=== PATIENT | male | born 1955 | race Caucasian/White ===

== ENCOUNTER 2022-10-21 10:17 | Outpatient (CLI) | payer OTHER ==
[2022-10-21 16:58] VITALS: BP 136/88
--- NOTE | 2022-10-21 16:58 | SLEEP CARE CONSULTATION ---
Information from patient questionnaire entered by Dustin Pichardo. I have reviewed and concur with the information entered by Dustin Pichardo. This document represents the service I personally performed and the decisions made by me, Ronni Acosta MD, [facility]. History of Present Illness Service Date and Time: 10/21/2022 1017 Reason for Visit: New patient Chief Complaint: reports: Insomnia, Unrefreshed sleep, Excessive daytime sleepiness, Fatigue Date of Onset: 6-7YRS Usual bedtime: 12AM Time it takes to fall asleep: 30-60MIN Snores at night: No Observed to quit breathing while asleep: No Sleeps alone due to snoring: No Number of times waking at night: 2-3 Reasons for waking at night: reports: Pain, Bathroom Toss, Turn, or Twitch while sleeping: Yes Recalls having dreams: Yes Usually gets out of bed at: 7AM Feels refreshed in the morning: No Morning headache: No Sleepy or fatigued during the day: Yes Ever fallen asleep while driving: No Takes day naps: No Dreams during day naps: No Prior sleep studies: Yes Additional HPI information: I had the pleasure of seeing Mr. Thompson today regarding obstructive sleep apnea- hypopnea. As you know, he is a 67-year-old gentleman who was diagnosed with the sleep-disordered breathing at [facility] in [place] about 4 5 years ago. The sleep study report is not available but the patient recalls being told that it was severe. He was prescribed a CPAP which he acquired from the [facility]. He tried it for one month then quit because of claustrophobia. He tried nasal pillows, nasal masks, and full face masks. Since the diagnosis, he gained 50 lbs. Interestingly, his snore has gotten much better and his no longer sees him quit breathing at night. He adds that he is not sleepy during the day. He did look into the Inspire therapy (hypoglossal nerve stimulation) at [facility] but was told that he is not a candidate. - Parasomnia Symptoms Ever been unable to move upon waking from sleep: No Walks in sleep: No Talks in sleep: No Ever acted out dreams in sleep: No Ever felt weak in the knees when startled or emotional: No Bothered by creepy, crawly, restless sensations in legs: Yes Problems with memory or concentration: Yes Subjective Initial [place] Sleepiness Scale score: 9 (10/21/22) Past Medical History Past Medical History: reports: Claustrophobia, Arthritis, Depression, Mood disorder Social History The patient's occupation is a RE. Patient is and lives in [place]. Quit date: 2021 Alcohol use: Yes Alcohol amount and frequency: 1-5 1-2 X YRS Caffeine use: Yes Caffeine amount and frequency: 20OZ DAILY Family History Family history of sleep disordered breathing: No Allergies and Home Medications Known drug allergies: No Drug allergies reviewed: Yes Home medication list reviewed: Yes Allergy and home medication list: Allergies No Known Drug Allergies Allergy (Unverified 11/16/13 11:33) Review of Systems Weight gain over past 5 years: 40 Cardiovascular: denies: high blood pressure, palpitations, chest pain, irregular heart rate or pulse, leg or foot swelling, have to sleep sitting up, other Respiratory: reports: shortness of breath, sputum production, chronic cough Gastrointestinal: reports: heartburn Urinary: denies: incontinence, frequency, urgency, impotence, other Neurological: denies: headaches, seizure, head trauma, disorientation, speech dysfunction, gait or balance problems, fainting or unconsciousness, other Psychiatric: reports: depression, mood disorder Ear/Nose/Throat: reports: wisdom teeth removed Endocrine: denies: thyroid disease, history of goiter, sluggishness, too hot or cold, excessive thirst, increased appetite, increased urination, unexplained weakness, other Musculoskeletal: reports: joint pain, neck pain, back pain, muscle pain or cramping Immunologic: reports: sneezing Physical Exam Vital signs obtained and entered by: DUSTIN Jones MA Blood Pressure: 136/88 (LEFT ARM) Cuff size: regular Heart Rate: 101 O2 Saturation: 93 Height: 5 ft 11 in Weight: 197 lb 3.2 oz Body Mass Index: 27.5 BMI Classification: Overweight Neck circumference: 16.5 Mood/affect: Normal HEENT: No craniofacial malformation Nostrils: patent to airflow Turbinates: normal Septum: midline Mouth and throat: narrow oropharynx Soft palate: long Hard palate: normal Uvula: normal Uvula visualization: 50% Mallampati Class II Tongue: normal in size Tonsils: small Chin and jaw: normal size and position Neck: normal w/o lymphadenopathy or thyromegaly Heart: regular rate and rhythm Lungs: wheeze, crackles Extremities: 1+ edema Neurologic: intact Impression and Plan IMPRESSION: 1. Obstructive Sleep Apnea-Hypopnea Syndrome, as previously diagnosed. The severity is unknown. The patient tried but could not use the CPAP. It is not clear why he is not a candidate for the Inspire therapy (I suspect that it is because his insurance is the [place]). Because he does not snore much at home and his does not see him quit breathing anymore despite the weight gain, I will repeat the in-laboratory polysomnography. The study will also help to qualify him for the Inspire Therapy. With history of multiple pneumothoraxes, positive airway pressure therapy might not be a good treatment. Plan: 1. Schedule an in-laboratory polysomnography. 2. Try to lose weight. 4. Return for follow up after the sleep study. Counseling Topics: Weight control Follow up with Sleep Care in: 1-2 months Plan: in-lab PSG Visit Type: In Office Time Spent with Patient (minutes): 15 Provider Statement: I spent 100% of the Face to Face Visit with the patient with greater than 50% spent counseling the patient and coordination of care.
== END 2022-10-21 10:18 | disposition home or self-care (01) ==
LOC: SC 10:17
PROVIDERS: ATTEND Internal Medicine Pulmonary Disease
DX: G47.33 Obstructive sleep apnea (adult) (pediatric) (principal); E66.3 Overweight; Z68.27 Body mass index [BMI] 27.0-27.9, adult
CPT/HCPCS: 99202; 99212

== ENCOUNTER 2022-11-10 20:22 | Outpatient (CLI) | payer OTHER | END 2022-11-10 20:23 | disposition home or self-care (01) | LOC: SC 20:22 | PROVIDERS: ATTEND Internal Medicine Pulmonary Disease | DX: R09.02 Hypoxemia (principal) | CPT/HCPCS: 95810 ==

== ENCOUNTER 2022-11-14 16:16 | Outpatient (CLI) | payer OTHER ==
[2022-11-14] MEDS ORDERED: ALBUTEROL 1 PUFF INH STA (17:56)
== END 2022-11-14 16:17 | disposition home or self-care (01) ==
LOC: RT 16:16
PROVIDERS: ATTEND Internal Medicine
DX: J84.10 Pulmonary fibrosis, unspecified (principal); R06.00 Dyspnea, unspecified
CPT/HCPCS: 94060; 94727; 94729

== ENCOUNTER 2022-12-04 12:53 | Outpatient (CLI) | payer OTHER ==
[2022-12-04 13:17] VITALS: BP 128/72
--- NOTE | 2022-12-04 13:17 | SLEEP CARE CONSULTATION ---
Information from patient questionnaire entered by Marisol Pichardo. I have reviewed and concur with the information entered by Marisol Pichardo. This document represents the service I personally performed and the decisions made by , Liz Barrios ARNP. History of Present Illness Service Date and Time: 12/04/2022 1253 Initial [place] Sleepiness Scale score: 9 Current [place] Sleepiness Scale score: 7 (12/04/22) Additional HPI information: ANASTASIIA ADLER returns for follow up and results of the recently performed polysomnography. The patient was informed of the following findings: No significant sleep disordered breathing with an average AHI of 4.2 and jamir oxygen saturation of 81% with 15.5 minutes spent below 88% (88.5% was low average SPO2). I explained the pathophysiology behind obstructive sleep apnea. Patient does not have sleep apnea and was advised how weight gain could increase the risk of developing sleep apnea in the future. I strongly encouraged the patient to lose weight. Patient does not have significant sleep disordered breathing but has elevated AHI in supine position so advised positional therapy. Methods to achieve positional management therapy were discussed; such as, positioning with pillows, wearing a T-shirt with tennis balls sewn into the back, or commercially available products. Patient has light snoring. Snoring can be reduced by weight loss. Weight loss is best achieved with diet consult. Patient instructed to contact PCP for referral. Snoring can also be treated with an oral appliance from a dentist. Advised to check insurance coverage. In addition, an ENT evaluation can be do to see if other treatment is indicated. Patient drink alcohol rarely. Patient was cautioned about risks of drowsy driving until sleepiness symptoms resolve. Patient denies drowsy driving. Sleep Study - Results Type of Sleep Study: Polysomnography (COMPLETED 11/10/22) Prior sleep studies: Yes Polysomnography/Home Sleep Study results: IMPRESSION: The quality of the study is good. The patient had slightly reduced sleep efficiency due to frequent awakenings during the night. The sleep architecture was abnormal for sleep fragmentation and lack of slow wave sleep (N3). Respiratory monitoring showed no significant sleep disordered breathing (AHI = 4.2). There was mild hypoxia (jamir oxygen saturation of 81% with 15.5 minutes spent with oxygen saturation at or below 88%). The few respiratory events occurred almost exclusively during supine sleep (supine AHI = 27.0; non-supine = 1.41). Snore was infrequent and light in intensity. There was no significant periodic leg movement of sleep. Cardiac rhythm was normal sinus rhythm without significant arrhythmia. No abnormal behavior (parasomnia) observed during the night. Allergies and Home Medications Known drug allergies: No Drug allergies reviewed: Yes Home medication list reviewed: Yes (Duloxetine 40 mg; Pregabalin) Allergy and home medication list: Allergies No Known Drug Allergies Allergy (Verified 12/03/22 14:43) Review of Systems Review of systems same as previous: Yes (no changes) Physical Exam Vital signs obtained and entered by: MARISOL Jones MA Blood Pressure: 128/72 (LEFT ARM) Cuff size: regular Heart Rate: 104 O2 Saturation: 89 Height: 5 ft 11 in Weight: 199 lb 6.4 oz Body Mass Index: 27.8 BMI Classification: Overweight Impression and Plan 1. Hypoxemia, mild, with a jamir oxygen saturation of 81% and 15.5 minutes spent under 88%. His baseline oxygen saturation was a low normal with an average oxygen saturation of 88.5%. Patient has a history of interstitial lung disease and is under a charge coordinator's care at this time. I advised him to continue followups with pulmonology. 2. Snoring but no significant sleep disordered breathing. However, he had elevated supine AHI at 27. He was advised to avoid supine sleep to control apneas. Patient advised that often weight loss will reduce snoring as well as apnea risk. An oral appliance can also be used for snoring. This would require a dental consultation. Patient cautioned not to use other online appliances as can cause bite issues. A list of accredited dentists in [facility] and one local dentist who makes oral appliances is available in office if needed. Patient is advised to check if insurance will cover. An ENT consult can also be helpful to determine if any other treatment is an option. * Follow up with pulmonolgy as already determined * Attempt to lose weight * Avoid alcohol consumption near bedtime * Return as needed for follow up. Counseling Topics: Sleeping position, Weight loss health impact Visit Type: In Office Time Spent with Patient (minutes): 20 Provider Statement: I spent 100% of the Face to Face Visit with the patient with greater than 50% spent counseling the patient and coordination of care.
== END 2022-12-04 12:54 | disposition home or self-care (01) ==
LOC: SC 12:53
PROVIDERS: ATTEND Nurse Practitioner Family
DX: R09.02 Hypoxemia (principal); R06.83 Snoring; E66.3 Overweight; Z68.27 Body mass index [BMI] 27.0-27.9, adult
CPT/HCPCS: 99212; 99213

== ENCOUNTER 2023-10-23 07:07 | Outpatient (CLI) | payer OTHER | END 2023-10-23 23:59 | disposition critical access hospital (66) | LOC: EMS 07:07 | DX: R55 Syncope and collapse (principal); S09.90XA Unspecified injury of head, initial encounter; W08.XXXA Fall from other furniture, initial encounter | CPT/HCPCS: A0425; A0429 ==

== ENCOUNTER 2023-10-23 07:28 | Emergency (ER) | payer OTHER ==
[2023-10-23 07:48] LABS: BASOPHILS % (AUTO) 0.4 %; EOSINOPHILS # (AUTO) 0.2 10^3/uL (0.0-0.7); EOSINOPHILS % (AUTO) 2.1 %; HCT - HEMATOCRIT 43.4 % (42.0-52.0); LYMPHOCYTES # (AUTO) 0.9 10^3/uL (1.5-3.5); LYMPHOCYTES % (AUTO) 10.1 %; MEAN CORPUSCULAR HEMOGLOBIN 30.2 pg (27.0-31.0); MEAN CORPUSCULAR HGB CONC 32.3 g/dL (32.0-36.0); MEAN CORPUSCULAR VOLUME 93.7 fL (80.0-94.0); MEAN PLATELET VOLUME 8.5 fL (7.4-11.4); MONOCYTES # (AUTO) 0.9 10^3/uL (0.0-1.0); MONOCYTES % (AUTO) 11.1 %; NEUTROPHILS # (AUTO) 6.4 10^3/uL (1.5-6.6); NEUTROPHILS % (AUTO) 76.1 %; PLT - PLATELET COUNT 347 10^3/uL (130-450); RED BLOOD COUNT 4.63 10^6/uL (4.70-6.10); RED CELL DISTRIBUTION WIDTH 12.9 % (12.0-15.0); WHITE BLOOD COUNT 8.5 x10^3/uL (4.8-10.8)
[2023-10-23] MEDS: lidocaine 1% 20 ML MDV SUBQ ONE (07:48)
[2023-10-23] MEDS: SODIUM CHLORIDE 0.9% 1,000 ML IV STA (07:49)
[2023-10-23 08:03] LABS: ALBUMIN 3.9 g/dL (3.2-5.5); ALBUMIN/GLOBULIN RATIO 1.1 (1.0-2.2); BILIRUBIN,TOTAL 0.4 mg/dL (0.2-1.0); CALCIUM 9.5 mg/dL (8.5-10.3); CREATININE 0.9 mg/dL (0.6-1.3); POTASSIUM 4.1 mmol/L (3.5-4.5); TOTAL PROTEIN 7.3 g/dL (6.4-8.9)
--- NOTE | 2023-10-23 08:18 | CT Report ---
PROCEDURE: Cervical Spine WO INDICATIONS: fall/head inj TECHNIQUE: Noncontrast 3 mm thick sections acquired from the skull base to the T4 level. Sagittal and coronal r eformats were then constructed. For radiation dose reduction, the following was used: automated exp osure control, adjustment of mA and/or kV according to patient size. COMPARISON: 11/16/2013. FINDINGS: Image quality: Excellent. Bones: No fractures or dislocations. Visualized superior ribs are intact. Moderately severe cervic al spondylitic change. Remote interbody fusion at C6-C7. Multilevel uncovertebral joint hypertrophy a nd facet arthropathy. Multilevel bony foraminal narrowing. Soft tissues: Prevertebral soft tissues are normal in thickness. No paravertebral hematomas. No ap ical pneumothoraces. Extensive biapical bullous emphysema. Development of a pleural-based spiculated density in the left apex. IMPRESSION: 1. No acute cervical fracture or dislocation. 2. Moderately severe cervical spondylosis. 3. Severe biapical bullous emphysema. 4. Development of a pleural-based spiculated density in the left apex. Recommend CT chest for further evaluation of pulmonary findings. Reviewed by: Cruz Regan MD on 10/23/2023 8:16 AM PDT Approved by: Cruz Regan MD on 10/23/2023 8:16 AM PDT Station ID: [id number]
--- NOTE | 2023-10-23 08:19 | CT Report ---
PROCEDURE: Head WO INDICATIONS: syncope/fall/head inj TECHNIQUE: Noncontrast 4.5 mm thick angled axial sections acquired from the foramen magnum to the vertex. For r adiation dose reduction, the following was used: automated exposure control, adjustment of mA and/or kV according to patient size. COMPARISON: None. FINDINGS: Image quality: Excellent. CSF spaces: Basal cisterns are patent. No extra-axial fluid collections. Ventricles are normal in size and shape. Brain: No midline shift. No intracranial masses or hemorrhage. Nieto-white matter interface is norm al. Skull and face: Calvarium and visualized facial bones are intact, without suspicious lesions. Sinuses: Patchy bilateral ethmoid disease. IMPRESSION: No acute intracranial pathology. Patchy bilateral ethmoid opacification. Reviewed by: Cruz Regan MD on 10/23/2023 8:17 AM PDT Approved by: Cruz Regan MD on 10/23/2023 8:17 AM PDT Station ID: [id number]
--- NOTE | 2023-10-23 09:31 | ED Physician Documentation ---
History of Present Illness - Stated complaint Stated Complaint: FALL/R EYE LAC - Chief complaint Chief Complaint: Trauma Hd/Nk - History obtained from History obtained from: Patient, EMS - Additonal information Additional information: The patient comes to the emergency department with chief complaint of syncopal episode with fall and right Eyelid laceration. The patient states that he normally gets up around 1:00 in the morning and did the same this morning. He had been watching some TV for a while when he began to feel flushed and slightly nauseated. The patient states this was around 4 30-5 o'clock. He got up from the couch where he had been and began to walk to the bathroom just in case he had to vomit. He states that the next thing he knew, he was waking up on the floor. The patient's states that there was a blood splatter on the wall next to where the patient was in a streak going down, which looked like the patient had hit the wall and then slid and down to the floor. The patient was incontinent of urine. He states that when he awoke, the urine still felt warm so he thinks that he was not unconscious for very long. The patient's states that when she woke up and got up for the day at 6:00, the patient was back in his chair and told her what had happened. The patient had blood on his face and the called EMS. The patient states he is feeling completely fine now other than a mild headache and the cut on his face. states that the patient has had a couple of other episodes like this over the years and that 1 time, she thought she noticed some seizure activity while they were in the car. She states it was very brief and that when the patient recovered from unconsciousness, he was seeming like his normal self. This was some years back. The patient has never been formally diagnosed with a seizure disorder and has not had any other seizure-like activity. The patient denies any diabetes or hypertension. No known cardiac issues. No chest pain or shortness of breath today either before or after the episode. He does admit to not drinking enough water. PD PAST MEDICAL HISTORY - Past Medical History Respiratory: Other GI: GERD : None Psych: None Musculoskeletal: Other Derm: None - Past Surgical History Past Surgical History: Yes - Present Medications Home Medications: Ambulatory Orders Medication Instructions Recorded Confirmed Bupropion HCl [Budeprion Sr] 150 mg PO BID 11/16/13 12/04/22 HYDROcod/ACETAM 5/325 [Vicodin 1 each PO BID PRN 11/16/13 12/04/22 5/325] Hydrocodone/Acetaminophen 1 - 2 each PO Q4-6H PRN #15 tablet 11/16/13 12/04/22 [Hydrocodon-Acetaminophen 5-300] Omeprazole [PriLOSEC] 20 mg PO DAILY 11/16/13 12/04/22 Ondansetron [Zofran Odt] 8 mg PO Q6H PRN #10 tab.rapdis 11/16/13 12/04/22 Pramipexole Di-HCl [Mirapex] 1 mg PO BID 11/16/13 12/04/22 - Allergies Allergies/Adverse Reactions: Allergies Allergy/AdvReac Type Severity Reaction Status Date / Time No Known Drug Allergies Allergy Verified 10/23/23 07:45 - Social History Does the pt smoke?: Yes Smoking Status: Current every day smoker Does the pt drink ETOH?: Yes Does the pt have substance abuse?: No - Immunizations Immunizations are current?: Yes - POLST Patient has POLST: No PD ED PE NORMAL - Vitals Vital signs reviewed: Yes - General General: Alert and oriented X 3, No acute distress, Well developed/nourished - HEENT HEENT: PERRL, EOMI, Moist mucous membranes, Other (2.5 cm laceration over the superior lateral orbital rim. No eyelid droop.) - Cardiac Cardiac: RRR, No murmur - Respiratory Respiratory: Clear bilaterally - Abdomen Abdomen: Normal bowel sounds, Soft, Non tender, Non distended - Derm Derm: Warm and dry - Extremities Extremities: No deformity - Neuro Neuro: Alert and oriented X 3 - Psych Psych: Normal mood, Normal affect Results - Vitals Vitals: Oxygen O2 Source Room air - EKG (time done) 0807 EKG releavant findings:: EKG personally interpreted by author of this note. Relevant findings are: Rate: Rate (enter#) (87) Rhythm: NSR Graham: Normal Intervals: Normal SC QRS: Normal Ischemia: Normal ST segments Compare to prior EKG: Old EKG unavailable Computer interpretation: Agree with computer - Labs Labs: Laboratory Tests 10/23/23 10/23/23 07:44 07:44 WBC 8.5 RBC 4.63 L Hgb 14.0 Hct 43.4 MCV 93.7 MCH 30.2 MCHC 32.3 RDW 12.9 Plt Count 347 MPV 8.5 Neut # (Auto) 6.4 Lymph # (Auto) 0.9 L Morris # (Auto) 0.9 Eos # (Auto) 0.2 Baso # (Auto) 0.0 Absolute Nucleated RBC 0.00 Nucleated RBC % 0.0 Sodium 135 Potassium 4.1 Chloride 99 L Carbon Dioxide 33 H Anion Gap 3.0 L BUN 10 Creatinine 0.9 Estimated GFR (MDRD) 84 L Glucose 138 H Calcium 9.5 Total Bilirubin 0.4 AST 27 ALT 31 Alkaline Phosphatase 105 Total Protein 7.3 Albumin 3.9 Globulin 3.4 Albumin/Globulin Ratio 1.1 Lipase 18 - Rads (name of study) CT head Relevant Findings:: Final report received, See rad report (neg) CT cervical spine Relevant Findings:: Final report received, See rad report (neg) Procedures - Laceration (location) R sup orb rim Wound type: Linear, Into subcut fat, Clean Neurovascular status: Sensory intact, Motor intact, Vascular intact Anesthesia: Lidocaine 1% Wound preparation: Hibiclens, Irrigated copiously NS, Wound explored, To the base Skin layer closure: Nylon, Interrupted, Size #-0 - enter number (5.0), Sutures - enter # (5) Other: Patient tolerated well, No complications, Dressing applied, Tetanus UTD PD Medical Decision Making - ED course Complexity details: reviewed results, re-evaluated patient, considered diff erential, d/w patient ED course: The pt's laceration was repaired as above. Work-up, including EKG, labs, and CT head/neck, was negative. We have discussed wound care at home, the timeline for suture removal, and the indications for sooner return, including signs of wound infections. Departure - Departure Disposition: 01 Home, Self Care Clinical Impression: Syncope and collapse, Dehydration Facial laceration Qualifiers: Encounter type: initial encounter Qualified Code(s): S01.81XA - Laceration without foreign body of other part of head, initial encounter Condition: Stable Instructions: ED Dehydration, ED Laceration Facial Sutr Tape, ED Fainting Unkn Cause Comments: You were worked up extensively for your fainting episode today, including with CT scans of the head and neck, EKG, and laboratory studies. There is no indication for x-rays, as you did not have any findings consistent with broken bones in any of your extremities or ribs. At this point in time, no emergent condition has been identified. All of your tests look good and you are in a normal heart rhythm on the clinic lead. Your vital signs have looked good throughout your stay, as well. Your eye lid laceration was repaired with synthetic sutures today. We have used the sutures because they have higher integrity and tensile strength, appropriate for the region of the body where your laceration occurred. They should be left in for 7 days, based on the depth of the wound. At that time, you should have your wound rechecked by medical professional, either in primary care clinic, urgent care, or the emergency department, to determine whether the wound is healed enough for sutures to be removed. If you are provider determines that the wound is well and if healed, then the sutures may be removed at that time. Prior to this, you should avoid immersing, rubbing, or scrubbing the wound until sutures are taken out. This is to prevent the introduction of infection along the sutures under the skin. If you do begin to notice that you have redness or increased swelling spreading progressively away from your wound, or if it becomes "mushy" and looks like it is draining, you should get rechecked. After bumping your head, it is not uncommon to have a sense of feeling "off", sometimes with some headache or nausea. You may be a little more drowsy than usual. However, if you begin vomiting incessantly or develop a severe, excruciating headache, or any other areas of concern, please return to the emergency department. You should schedule the next available appointment with your primary doctor to follow-up on your fainting episode today. In the meantime, you should drink lots of water every day, with a goal of 8 to 10 cups, to stay hydrated. Forms: PCP List Discharge Date/Time: 10/23/23 10:03
[2023-10-23] MEDS: BACITRACIN ZINC OINT 1 PACKET TOP STA (09:56)
[2023-10-23 10:12] VITALS: BP 153/84; O2SAT 94
== END 2023-10-23 10:03 | disposition home or self-care (01) ==
LOC: EDUNIT# → ED 07:28
DX: S01.81XA Laceration without foreign body of other part of head, initial encounter (principal); W19.XXXA Unspecified fall, initial encounter; R55 Syncope and collapse; E86.0 Dehydration; F17.200 Nicotine dependence, unspecified, uncomplicated
CPT/HCPCS: 12011; 36415; 70450; 72125; 80053; 83690; 85025; 93005; 99284; A9270

== ENCOUNTER 2023-12-01 15:02 | Outpatient (CLI) | payer OTHER ==
--- NOTE | 2023-12-01 18:10 | CT Report ---
PROCEDURE: Chest WO INDICATIONS: PULMONARY NODULE TECHNIQUE: A CT scan of the chest was performed. Intravenous contrast media was not administered. Images were re corded and evaluated at appropriate window settings. Reformats: axial MIP of the chest, coronal and s agittal. For radiation dose reduction, the following was used: automated exposure control, adjustment of mA and/or kV according to patient size. COMPARISON: CT cervical spine 10/23/2023, 11/16/2013. FINDINGS: Image quality: Diagnostic. Chest wall and lower neck: No thyroid nodule which requires sonographic follow up. No axillary or sup raclavicular adenopathy by size. Lungs and pleura: Small pleural effusions loculated to the upper thorax. Calcified right pleural plaq ue. No pneumothorax. Severe paraseptal emphysema. No significant pulmonary nodules identified. Mediastinum: Heart size is normal. No pericardial effusion. No large vessel abnormality. No mediastin al adenopathy by size criteria. The esophagus is somewhat patulous. There is fluid in the esophagus. Bones: No aggressive osseous abnormality. Changes of prior right upper thoracotomy, (). Upper Abdomen: Hyperdense focus in the right lobe of liver, (), indeterminate. Post cystectomy. N o adrenal nodule. IMPRESSION: 1. Biapical pleural scarring with small pleural effusions. Severe septal emphysema. 2. Calcified pleural plaque consistent with prior asbestos exposure. 3. No pulmonary nodule identified. No adenopathy. 4. Hypodense focus in the liver is indeterminate. This could represent a small hemangioma. This could be further evaluation with multiphase liver CT or liver MRI. Reviewed by: Peter Ambrosio MD on 12/01/2023 6:09 PM PDT Approved by: Peter Ambrosio MD on 12/01/2023 6:09 PM PDT Station ID: [id number]
== END 2023-12-01 15:03 | disposition home or self-care (01) ==
LOC: DI 15:02
PROVIDERS: ATTEND Nurse Practitioner Primary Care
DX: R91.1 Solitary pulmonary nodule (principal); J90 Pleural effusion, not elsewhere classified; J43.9 Emphysema, unspecified; J92.9 Pleural plaque without asbestos; R93.2 Abnormal findings on diagnostic imaging of liver and biliary tract

== ENCOUNTER 2024-01-26 14:59 | Outpatient (CLI) | payer OTHER ==
[2024-01-26] MEDS: iohexoL-300 100 ML VIAL IVP ONE (16:45)
--- NOTE | 2024-01-27 14:35 | CT Report ---
PROCEDURE: Abdomen W/WO INDICATIONS: LIVER MASS/CYST TECHNIQUE: Axial CT images were obtained with and without contrast using the liver protocol of the ab domen and pelvis. Reformats were obtained. COMPARISON: Chest CT 12/01/2023 FINDINGS: Image quality: Diagnostic Lower chest: Better evaluated on recent chest CT. Cystic changes versus emphysema partially evaluated at lung bases, along with scarring/atelectasis. Small hiatal hernia and nonspecific distal esophagea l wall thickening. Liver: Segment 4 subcentimeter lesion is probably a cyst, nonenhancing, but too small to characterize even on this multiphase CT. Gallbladder and biliary system: Cholecystectomy clips. No pathologic biliary dilation Pancreas: No ductal dilation Spleen: Nonenlarged Adrenals: No discrete nodules Kidneys: No solid mass. No hydronephrosis. No calcified renal stones Vessels and lymph nodes: The main portal vein is patent. No abdominal aortic aneurysm. There are athe rosclerotic calcifications. No pathologic lymph nodes by size criteria. Tortuous and ectatic left tomy natalia vein. Bowel and peritoneum: No evidence of small bowel obstruction. No pathologic ascites or drainable absc ess. The appendix is nondilated. Body wall: Small fat-containing umbilical and inguinal hernias. Pelvis: Bladder is unremarkable. The prostate is not well eval on this study, overall unremarkable Bones: Fused and heterogeneous sacroiliac joints, possibly sequelae of degenerative or inflammatory a rthritis. Spinal degenerative changes. IMPRESSION: Segment 4 subcentimeter liver lesion is nonenhancing is probably a small cyst. Consider follow-up if the patient otherwise has a history of malignancy. Other incidental findings above. Reviewed by: Kyle Lazaro MD on 01/27/2024 2:33 PM PDT Approved by: Kyle Lazaro MD on 01/27/2024 2:33 PM PDT Station ID: [id number]
== END 2024-01-26 15:00 | disposition home or self-care (01) ==
LOC: LAB 14:59
PROVIDERS: ATTEND Internal Medicine
DX: K76.9 Liver disease, unspecified (principal); Z01.89 Encounter for other specified special examinations; R93.2 Abnormal findings on diagnostic imaging of liver and biliary tract
CPT/HCPCS: 36415; 74170; 82565; Q9967